=== PATIENT | male | born 1975 | race Caucasian/White ===

== ENCOUNTER 2019-04-02 13:43 | Inpatient (IN) ==
--- NOTE | 2019-04-02 14:54 | Diag Imaging Result Doc PS360 ---
EXAM: FLAT/UPRIGHT ABD/1 VIEW CHEST 04/02/2019 HISTORY: abd pain TECHNIQUE: Flat and upright abdomen with PA chest COMMENT: There is some platelike opacity in the left mid and lower lung field which may be due to atelectasis. The heart size and pulmonary vascularity are within normal limits. There is some stool in the colon. There is no evidence of gastric or small bowel dilatation. There is no evidence of organomegaly or mass. IMPRESSION: Minimal atelectasis primarily in the left base. No evidence of acute intra-abdominal disease. Electronically signed by Sandro Monk 04/02/2019 2:52 PM
[2019-04-02] MEDS ORDERED: MORPHINE IV ONE (15:43)
--- NOTE | 2019-04-02 15:46 | PROVIDER DOCUMENTATION ---
HPI-Abdominal Pain/GI Problem - General Chief Complaint: Generalized Pain Stated Complaint: NUMBNESS LT ARM,RIB PAIN,HURTS TO BREATHE Time Seen by Provider: 04/02/19 14:29 Source: patient Allergies/Adverse Reactions: Patient Allergies Allergy/AdvReac Type Severity Reaction Status Date / Time clindamycin Allergy NAUSEA Verified 11/25/17 07:51 Home Medications: Home Medication List Medication Instructions Recorded Confirmed Last Taken Type Metformin HCl 1,000 mg PO BID 11/22/17 11/22/17 11/21/17 History Metoprolol Tartrate 100 mg PO BID 11/22/17 11/22/17 11/21/17 History Glimepiride [Amaryl] 2 mg PO BID CC #60 tab 11/24/17 Unknown Rx LISINOpril [Prinivil] 10 mg PO DAILY #90 tab 11/24/17 Unknown Rx Rivaroxaban [Xarelto] 15 mg PO BID #40 tab 11/24/17 Unknown Rx Rivaroxaban [Xarelto] 20 mg PO DAILY #30 tab 11/24/17 Unknown Rx Tizanidine [Zanaflex] 4 mg PO Q8HR #21 tab 11/24/17 Unknown Rx - History of Present Illness-ABD Nature of Presenting Problems: 43 YO M pmh for DM and HTN presents with left sided abd pain x 1 week that has not gone away. He states his last BM was 2 days ago, he normally goes everyday. He endorses left sided abdominal pain and left flank pain and abdominal distensi on. He has associated fever, chills, and decreased appetite. Last colonoscoy 2 years ago showing diverticulosis. 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 Abdominal Pain Onset Location: reports: LUQ, LLQ, flank (left) Quality of Pain: reports: aching, fullness, pressure Onset/Duration: reports: 1 week ago Timing: reports: still present Activities at Onset: reports: none Exposure to sick contacts?: No Modifying Factors: improves with: movement, palpation Associated Symptoms: reports: fever/chills, malaise, nausea, weakness. denies: diarrhea, headaches, seizure, shortness of breath, syncope Last BM: 2 days ago Rectal Bleeding: reports: none Review of Systems - Adult - REVIEW OF SYSTEMS - ADULT Constitutional: reports: see HPI, chills, fever Eyes: reports: no symptoms reported Ears, Nose, Mouth & Throat: reports: no symptoms reported Respiratory: denies: chronic cough, cough, dyspnea on exertion Gastrointestinal: reports: see HPI, abdominal pain, constipation, poor appetite Genitourinary: reports: flank pain. denies: dysuria, frequency, hematuria Musculoskeletal: reports: back pain Integumentary: reports: no symptoms reported Neurological: reports: no symptoms reported Past History - Adult - PAST MEDICAL HISTORY-ADULT Review of Records: reports: Old Records Reviewed, Nursing Assessment Review, Medications Reviewed Major Childhood Illnesses: reports: denies history Cardiovascular: reports: HTN Respiratory: reports: denies history Gastrointestinal: reports: denies history Obstetrical/Gynecological: reports: denies history Genitourinary: reports: denies history Musculoskeletal: reports: denies history Neurological: reports: denies history Endocrine/Immune: reports: denies history Other Conditions: reports: denies history - PRIOR SURGERIES/PROCEDURES Surgical/Procedure History: reports: none - IMMUNIZATION STATUS Childhood Immunizations: See Nurse Assessment Flu Vaccine: See Nurse Assessment - FAMILY HISTORY Family History: reviewed, not pertinent Physical Exam-General - PHYSICAL EXAM-ADULT Initial Vital Signs Reviewed: Yes - CONSTITUTIONAL General Appearance: alert, mild distress - EYES Eyes: PERRL/EOMI, pink conjunctivae - HEAD, EARS, NOSE, MOUTH & THROAT HENMT: normocephalic/atraumatic - NECK Neck: full range of motion, supple - RESPIRATORY Respiratory: lungs clear, normal breath sounds, no pleuratic chest pain, no respiratory distress - CARDIOVASCULAR Cardiovascular: tachycardia - GASTROINTESTINAL (ABDOMEN) Abdominal Exam: distended, tenderness. negative: guarding - MUSCULOSKELETAL Back Exam: CVA tenderness Extremity: normal range of motion - SKIN Integumentary: normal color, normal turgor, warm/dry - NEUROLOGIC Neurologic: grossly normal - PSYCHIATRIC Psych/Mental Status: normal mood/affect, oriented x 3 Progress - PLAN OF CARE/RESULTS Progress/Plan/Lab Results: Vital Signs - 8 hr 04/02/19 13:59 Temperature 100.9 F H Pulse Rate 114 H Respiratory Rate 20 Blood Pressure 121/87 O2 Sat by Pulse Oximetry 96 Orders Category Date Time Status Repeat Vital Signs .Oxygen Saturation Care 04/02/19 14:[address] ABDOMEN/PELVIS W/O CONTRAST [CT] Stat Exams 04/02/19 15:38 Ordered FLAT/UPRIGHT ABD/1 VIEW CHEST [RAD] Stat Exams 04/02/19 14:25 Completed AMYLASE [CHEM] Stat Lab 04/02/19 14:25 Uncollected CBC WITH ELECTRONIC DIFF [HEME] Stat Lab 04/02/19 14:25 Uncollected COMPREHENSIVE METABOLIC PANEL [CHEM] Stat Lab 04/02/19 14:25 Uncollected LIPASE [CHEM] Stat Lab 04/02/19 14:25 Uncollected UA [URINALYSIS W/POSS RFLX CULT] [URINALYSIS] Stat Lab 04/02/19 15:38 Uncollected no white count, elevated creat and dimer. will to CTA PE. fluids, GI cocktail. neg CT abd/pelv Result Diagrams: 04/02/19 16:34 04/02/19 16:34 - REASSESSMENT Reassessment #1 Status: unchanged (pt states he is not doing well. will try for GI cocktail. wi ll get CTA PE and start fluids) - XRAY 1 XRAY Study: Chest, Abdomen Impression: See EMR Report (HISTORY: abd pain TECHNIQUE: Flat and upright abdomen with PA chest COMMENT: There is some platelike opacity in the left mid and lower lung field which may be due to atelectasis. The heart size and pulmonary vascularity are within normal limits. There is some stool in the colon. There is no evidence of gastric or small bowel dilatation. There is no evidence of organomegaly or mass. IMPRESSION: Minimal atelectasis primarily in the left base. No evidence of acute intra-abdominal disease. Electronically signed by Sandro Monk 04/02/2019 2:52 PM) - CT/MRI 1 CT Study: Abdomen Impression: See EMR Report (EXAM: CT ABDOMEN/PELVIS W/O CONTRAST 04/02/2019 HISTORY: left sided abd pain TECHNIQUE: This exam was performed using automat ed exposure control, adjustment of mA or kV according to patient size, and/or use of iterative reconstruction technique. COMMENT: There is bibasilar subsegmental atelectasis. This is actually improved since the previous thoracic study of 11/21/2017. There are no previous abdominal examinations available for comparison. The liver is hypodense suggesting fatty change. This was also the case at the time the previous study. There is no evidence of hydronephrosis. There are no stones in the kidneys. There is no evidence of ureterolithiasis. The urinary bladder is slightly distended. There are diverticula in the sigmoid colon without evidence of diverticulitis. There is no evidence of bowel obst ruction. The appendix is normal in appearance. There are no definite gallstones. There is a fat-containing umbilical hernia. The regional skeleton is intact. IMPRESSION: No evidence of stones or obstruction. Bibasilar subsegmental atelectasis. Hepatic steatosis. Diverticulosis coli. Electronically signed by Sandro Monk 04/02/2019 4:01 PM) 2 CT Study: Angiogram (HISTORY: tachycardia TECHNIQUE: CT angiogram pulmonary arteries with intravenous contrast. Axial, coronal, and 3-D MIP images are obtained. COMPARISON: 11/21/2017 FINDINGS: Pulmonary artery opacification is suboptimal. There are no large or central pulmonary emboli identified. However, smaller, more peripheral pulmonary emboli are not excluded by this exam. There is no indication of aortic dissection. There are apparent pulmonary coronary artery calcifications noted. There are scattered subsegmental atelectasis. There is a tiny there is no dense consolidation or pneumothorax identified. Right pleural effusion. IMPRESSION: Suboptimal pulmonary artery opacification. No large or central pulmonary emboli. However, smaller, more peripheral pulmonary emboli are not excluded by this exam. Scattered subsegmental atelectasis. Tiny right pleural effusion. Apparent coronary artery ca lcifications noted. Electronically signed by Kam Olson 04/02/2019 8:23 PM) - CONSULTS/PCP/HOSPITALIST Notification #1 *Consult/PCP/Hospitalist*: Dr. Lazcano Time Discussed: 21:30 Consult Disposition: Will see in ED (wanted UA results) Departure - Departure Date of Disposition Decision: 04/02/19 Time of Disposition Decision: 21:02 DIAGNOSIS: STEFANIA (acute kidney injury), Uncontrolled diabetes mellitus, Pleural effusion Disposition: ADMITTED INPATIENT Certified Medical Emergency: Emergent Condition: Stable Referrals and Follow-Ups: Michael Alvarenga MD [Primary Care Provider] - - Critical Care Note This patient required my direct & personal management of CC.: No Attestation - Physician/ BETZY Attestation The physician spent face to face time with patient:: Yes Advanced Practice Provider documentation review:: Supervising physician onsite and consulted in the evaluation and care of this patient. The physician did have a face to face encounter with the patient.
--- NOTE | 2019-04-02 15:49 | EKG Report ---
Test Performed on : 04/02/2019 2:02:50 PM Test Reason : ED. No order in [place] Blood Pressure : / mmHG Vent. Rate : 110 BPM Atrial Rate : 110 BPM P-R Int : 162 ms QRS Dur : 084 ms QT Int : 336 ms P-R-T Axes : 031 -11 093 degrees QTc Int : 454 ms Sinus tachycardia. Abnormal QRS-T angle, consider primary T wave abnormality Abnormal ECG When compared with ECG of 21-NOV-2017 22:35, Nonspecific T wave abnormality no longer evident in Inferior leads Unconfirmed Result
--- NOTE | 2019-04-02 16:04 | Diag Imaging Result Doc PS360 ---
EXAM: CT ABDOMEN/PELVIS W/O CONTRAST 04/02/2019 HISTORY: left sided abd pain TECHNIQUE: This exam was performed using automated exposure control, adjustment of mA or kV according to patient size, and/or use of iterative reconstruction technique. COMMENT: There is bibasilar subsegmental atelectasis. This is actually improved since the previous thoracic study of 11/21/2017. There are no previous abdominal examinations available for comparison. The liver is hypodense suggesting fatty change. This was also the case at the time the previous study. There is no evidence of hydronephrosis. There are no stones in the kidneys. There is no evidence of ureterolithiasis. The urinary bladder is slightly distended. There are diverticula in the sigmoid colon without evidence of diverticulitis. There is no evidence of bowel obstruction. The appendix is normal in appearance. There are no definite gallstones. There is a fat-containing umbilical hernia. The regional skeleton is intact. IMPRESSION: No evidence of stones or obstruction. Bibasilar subsegmental atelectasis. Hepatic steatosis. Diverticulosis coli. Electronically signed by Sandro Monk 04/02/2019 4:01 PM
[2019-04-02 16:46] LABS: BASO# 0.02 X1000 (0.0-0.2); BASO% 0.2 % (0.0-0.8); EOS# 0.01 X1000 (0.0-0.7); EOS% 0.1 % (0.0-10.0); HEMATOCRIT 35.5 % (42.0-52.0); HEMOGLOBIN 12.8 g/dL (14.0-18.0); IMM GRAN# 0.03 X1000 (0.0-0.04); IMM GRAN% 0.3 % (0.0-0.5); LYMPH# 1.36 X1000 (1.2-3.4); LYMPH% 14.1 % (20.5-51.1); MCH 32.7 PG (27-31); MCHC 36.1 g/dL (33-37); MCV 90.6 FL (81-99); MONO# 1.13 X1000 (0.11-0.59); MONO% 11.7 % (1.7-9.3); MPV 11.5 FL (7.4-10.4); NEUT# 7.12 X1000 (1.4-6.5); NEUT% 73.6 % (42.2-75.2); PLT 186 X1000 (130-400); RBC 3.92 XMIL (4.7-6.1); WBC 9.67 X1000 (4.8-10.8)
[2019-04-02 17:06] LABS: ALBUMIN 3.9 g/dL (3.5-5.0); CALCIUM 8.8 mg/dL (8.8-10.2); CREATININE 1.7 mg/dL (0.7-1.2); POTASSIUM 4.4 mmol/L (3.5-5.1); TOTAL BILIRUBIN 0.96 mg/dL (0.20-1.00); TOTAL PROTEIN 7.7 g/dL (6.3-8.3)
[2019-04-02] MEDS ORDERED: G.I. COCKTAIL PO ONE (17:16)
[2019-04-02] MEDS ORDERED: NS 1,000 ML IV ONE (17:18)
--- NOTE | 2019-04-02 20:25 | Diag Imaging Result Doc PS360 ---
EXAM: CT ANGIOGRAM PULMONARY ARTERIES - 04/02/2019 HISTORY: tachycardia TECHNIQUE: CT angiogram pulmonary arteries with intravenous contrast. Axial, coronal, and 3-D MIP images are obtained. COMPARISON: 11/21/2017 FINDINGS: Pulmonary artery opacification is suboptimal. There are no large or central pulmonary emboli identified. However, smaller, more peripheral pulmonary emboli are not excluded by this exam. There is no indication of aortic dissection. There are apparent pulmonary coronary artery calcifications noted. There are scattered subsegmental atelectasis. There is a tiny there is no dense consolidation or pneumothorax identified. Right pleural effusion. IMPRESSION: Suboptimal pulmonary artery opacification. No large or central pulmonary emboli. However, smaller, more peripheral pulmonary emboli are not excluded by this exam. Scattered subsegmental atelectasis. Tiny right pleural effusion. Apparent coronary artery calcifications noted. Electronically signed by Kam Olson 04/02/2019 8:23 PM
[2019-04-02] MEDS ORDERED: NS 500 ML IV ONE (21:27)
[2019-04-02 21:33] LABS: URINE SOURCE CLEAN CATCH
[2019-04-02 21:36] LABS: BILIRUBIN URINE NEGATIVE (NEGATIVE); BLOOD URINE NEGATIVE (NEGATIVE); COLOR YELLOW; GLUCOSE URINE NEGATIVE (NEGATIVE); KETONE URINE TRACE mg/dL (NEGATIVE); LEUKOCYTES URINE NEGATIVE (NEGATIVE); NITRITE URINE NEGATIVE (NEGATIVE); PH URINE 5.5; PROTEIN URINE TRACE mg/dL (NEGATIVE); SP GRAVITY URINE 1.039; TURBIDITY URINE CLEAR (CLEAR); UR EPITHELIAL CELLS <10 /HPF (<10); URINE BACTERIA NEGATIVE /HPF; URINE RBC <10 /HPF (<10); URINE WBC <10 /HPF (<10); UROBILINOGEN URINE NORMAL (NORMAL)
[2019-04-02] MEDS ORDERED: XARELTO PO ONE (23:50)
[2019-04-02] MEDS ORDERED: ZOFRAN IV PRN (23:50)
[2019-04-02] MEDS ORDERED: MORPHINE IV PRN (23:50)
--- NOTE | 2019-04-03 00:06 | HISTORY AND PHYSICAL ---
PRIMARY CARE PHYSICIAN: Michael Alvarenga MD REASON FOR ADMISSION: Six-day history of vague abdominal discomfort. HISTORY OF PRESENT ILLNESS: Mr. Hector Strauss is a 43-year-old middle-aged, male with past medical history of type 2 diabetes, hypertension, and hyperlipidemia. He was last seen by me 1-1/2 years ago for PE. He received, I believe, 1 year of treatment for this and doing well up until about 6 days ago, when he developed diffuse abdominal discomfort. He is having a hard time qualifying the nature of the pain, but says he felt as if he was bloated or full. Two days later, he took some laxative tablets without any relief, and 2 days later he took half a bottle of castor oil, and said he had a very good result and had multiple bowel movements. No black stools. No blood in stools. He denies any nausea or vomiting, but has been having occasional heartburn. On the day he had these numerous stools, he said he felt much better. The following day he said he started having the sensation of generalized bloating, and he felt the discomfort was returning. He came in today because he was febrile and his pain had gotten worse. He reports this fever as being a temperature of 101 degrees. He denies any night sweats. No genitourinary complaints. No bleeding from any orifice. No cardiorespiratory complaints. He says his pain now is localized to the left upper quadrant area, radiating to the flank and the back. No new-onset arthralgias, except for his right 3rd middle finger and his left foot. No polyuria or polydipsia. No focal neurological complaints. REVIEW OF SYSTEMS: Twelve-system review was done. Positive findings per HPI. ALLERGIES: To clindamycin. HOME MEDICATIONS: He is on amlodipine 10 mg daily; aspirin 81 mg daily; Amaryl 4 mg b.i.d.; hydrochlorothiazide 25 mg q.a.m.; Advil 400 mg daily; lisinopril 40 mg daily; metformin 1000 mg b.i.d.; metoprolol 400 mg b.i.d.; Prilosec 20 mg daily; pravastatin 40 mg q.a.m.; Januvia 100 mg q.a.m. SURGICAL HISTORY: He still has none. SOCIAL HISTORY: He does not smoke, drink, or use drugs. He is , lives with his . FAMILY HISTORY: Still notable only for heart disease and diabetes. No thrombophilia. LABORATORY DATA: White count 9000, hemoglobin and hematocrit 12 and 35, platelets 186,000 with normal differential. Sodium is 130, BUN is 27, creatinine is 1.7. His baseline creatinine is usually 1.2. Glucose is 216. D-dimer 2.27. DIAGNOSTIC DATA: CT abdomen and pelvis: No evidence of stone or obstruction; there is bibasilar segmental atelectasis, hepatic steatosis, and diverticulosis. Abdominal x-ray was grossly unremarkable. CT PE: No evidence of large or central pulmonary emboli identified due to inadequate opacification. It still does not rule out peripheral pulmonary emboli. Also, a right pleural effusion is noted. PHYSICAL EXAMINATION: GENERAL: Morbidly obese man who is in moderate distress. He is alert and oriented x3. Normal mood and affect. VITAL SIGNS: Blood pressure 128/87, heart rate 114, respirations 20, temperature is 100.9 degrees, saturation 96% on room air. HEENT: Head is normocephalic, atraumatic. Eyes: PERRLA, EOMI. He is anicteric and not pale. ENT and oropharynx exam is grossly normal. NECK: Supple. No JVD or carotid bruit. No thyromegaly. CHEST: Clear to auscultation. Good air entry in both lung contreras. CARDIOVASCULAR: First and second heart sounds heard. No gallops, murmurs or rubs. Rhythm is regular. GASTROINTESTINAL: Abdomen is protuberant, soft with left upper quadrant tenderness, but no rebound. Bowel sounds are hypoactive. Rectal exam deferred at this time. There is positive left CVA tenderness. EXTREMITIES: There is no redness or swelling in any of the extremities. No edema. No clubbing or peripheral cyanosis. Distal pulse volume symmetrical, regular with good volume. NEUROLOGICAL: No gross focal deficits. SKIN: Intact. No breakdown, lesion, or erythema. MUSCULOSKELETAL: Grossly normal. ASSESSMENT: 1. Left flank pain, ? renal vein thrombosis or referred pain from peripheral pulmonary emboli of the left lung. 2. Acute kidney injury. Kidney Disease: Improving Global Outcomes stage 2. 3. Hypertension. 4. Hyperlipidemia. 5. Probable gout of the left foot and 3rd digit of the right hand. 6. Morbid obesity. 7. Type 2 diabetes, uncontrolled. 8. Anemia of chronic inflammation. PLAN: 1. At this point in time, the origin of the patient's pain is difficult to elucidate. Based on the symptoms and intense nature of the pain, a vascular etiology may need to be considered or alternatively, an infarctive process also needs to be considered. As such, we will start the patient on Xarelto. A CTA of the abdomen may need to be done to rule out renal vein thrombosis, and because of the patient's prior history of thrombophilia and/or a possible splenic infarct. If these are normal, then it is still possible that the patient may have a very distal small arterial pulmonary emboli causing his pain. The decision to continue with anticoagulation I will defer to the primary care provider. 2. We will start the patient on aggressive fluid resuscitation. This is because of the patient's recent acute kidney injury and exposure to high iodine volume load for his CT PE scan. BMP needs to be monitored closely. I do believe STEFANIA could be multifactorial. The patient was on MARLON inhibitors, hydrochlorothiazide, and NSAIDs, all of which could contribute to STEFANIA. These will need to be held indefinitely until renal function improves. A renal sonogram is ordered. Urine indices are also ordered. The patient's complaint of his joint pains could be related to gout. Uric acid levels were ordered and hydrochlorothiazide needs to be discontinued. Blood sugars will be managed with sliding scale. cc: Ankit Lazcano MD
[2019-04-03] MEDS: NS 1,000 ML IV SCH ×5 (00:25→21:51)
[2019-04-03] MEDS: TYLENOL PO SCH ×5 (00:26→23:20)
[2019-04-03] MEDS: HUMALOG SUBQ SCH ×4 (06:13→21:17)
[2019-04-03] MEDS: PRILOSEC PO SCH (06:26)
[2019-04-03 07:28] LABS: UR CREAT RANDOM 122.1 mg/dL (14-26)
[2019-04-03 07:53] LABS: BASO# 0.02 X1000 (0.0-0.2); BASO% 0.2 % (0.0-0.8); EOS# 0.06 X1000 (0.0-0.7); EOS% 0.7 % (0.0-10.0); HEMATOCRIT 34.6 % (42.0-52.0); IMM GRAN# 0.03 X1000 (0.0-0.04); IMM GRAN% 0.4 % (0.0-0.5); LYMPH# 2.11 X1000 (1.2-3.4); LYMPH% 25.4 % (20.5-51.1); MCHC 34.7 g/dL (33-37); MCV 92.3 FL (81-99); MONO# 0.97 X1000 (0.11-0.59); MONO% 11.7 % (1.7-9.3); MPV 11.7 FL (7.4-10.4); NEUT# 5.11 X1000 (1.4-6.5); NEUT% 61.6 % (42.2-75.2); PLT 188 X1000 (130-400); RBC 3.75 XMIL (4.7-6.1); RDW 12.3 % (11.5-14.5)
--- NOTE | 2019-04-03 08:08 | Diag Imaging Result Doc PS360 ---
EXAM: US RENAL 2 (RETROPER) COMPLETE INDICATION: L flank pain STEFANIA TECHNIQUE: COMPARISON: None. FINDINGS: The kidneys are grossly normal in echotexture with no discrete solid mass or hydronephrosis. The right kidney measures 13.2 cm and the left kidney measures 14.2 cm in the greatest longitudinal axes. Both renal cortices measure up to 1.5 cm in thickness. The urinary bladder is normally distended. It is grossly unremarkable. IMPRESSION: Grossly normal renal ultrasound. Electronically signed by Junito Sinha 04/03/2019 8:05 AM
[2019-04-03 08:13] LABS: CALCIUM 8.8 mg/dL (8.8-10.2); CREATININE 1.5 mg/dL (0.7-1.2); POTASSIUM 4.3 mmol/L (3.5-5.1)
[2019-04-03] MEDS: NORVASC PO SCH (10:25)
[2019-04-03] MEDS: ASPIRIN PO SCH (10:25)
[2019-04-03] MEDS: LOPRESSOR PO SCH ×2 (10:26→21:16)
--- NOTE | 2019-04-03 11:11 | PROGRESS NOTE ---
DATE: 04/03/2019 VITAL SIGNS: Vital signs stable with temperature 97.6 degrees heart rate 80, respirations 19, blood pressure 109/62, O2 saturation on room air 98%. OBJECTIVE: The patient is a 43-year-old, white man, diabetic with left flank pain for several days and anorexia. There is history of pulmonary emboli a year or so ago. Pulmonary arteriogram was done in the emergency room revealing suboptimal study with peripheral emboli not excluded. CT of his abdomen revealed no stones or obstruction. There was mild bibasilar subsegmental atelectasis, hepatic steatosis, and diverticulosis. He was admitted through the emergency room by Dr. Lazcano. IMPRESSION: Left flank pain, possible renal vein thrombosis, acute kidney injury, gout in his left foot and right 3rd finger. BUN was 27 and creatinine 1.7, creatinine about a year ago was 1.2. Uric acid was elevated at 10.3. Liver functions were normal. Chest is clear to auscultation. Abdomen reveals mild left flank tenderness. PLAN: Renal ultrasound. He was given a dose of Xarelto in the emergency room. Lovenox will be given to prevent DVT. cc: Michael Alvarenga MD
[2019-04-03] MEDS: NORCO-7.5 PO PRN ×3 (11:18→21:17)
[2019-04-03] MEDS: CATAFLAM PO SCH ×2 (13:31→17:24)
[2019-04-03] MEDS ORDERED: SOLU-MEDROL IV ONE (16:58)
[2019-04-04] MEDS: NS 1,000 ML IV SCH ×2 (01:52→08:43)
[2019-04-04] MEDS: PRILOSEC PO SCH (06:28)
[2019-04-04] MEDS: TYLENOL PO SCH (06:28)
[2019-04-04] MEDS: HUMALOG SUBQ SCH (06:29)
[2019-04-04] MEDS: NORCO-7.5 PO PRN (06:32)
[2019-04-04 07:52] VITALS: BP 120/89
[2019-04-04 07:52] LABS: BASO# 0.01 X1000 (0.0-0.2); BASO% 0.1 % (0.0-0.8); HEMATOCRIT 34.7 % (42.0-52.0); HEMOGLOBIN 12.4 g/dL (14.0-18.0); IMM GRAN# 0.02 X1000 (0.0-0.04); IMM GRAN% 0.3 % (0.0-0.5); LYMPH# 0.81 X1000 (1.2-3.4); LYMPH% 11.5 % (20.5-51.1); MCHC 35.7 g/dL (33-37); MCV 89.7 FL (81-99); MONO% 2.8 % (1.7-9.3); MPV 11.6 FL (7.4-10.4); NEUT# 6.03 X1000 (1.4-6.5); NEUT% 85.3 % (42.2-75.2); PLT 199 X1000 (130-400); RBC 3.87 XMIL (4.7-6.1); RDW 11.8 % (11.5-14.5); WBC 7.07 X1000 (4.8-10.8)
[2019-04-04 08:00] LABS: CALCIUM 8.4 mg/dL (8.8-10.2); CREATININE 1.5 mg/dL (0.7-1.2); POTASSIUM 4.9 mmol/L (3.5-5.1)
[2019-04-04] MEDS ORDERED: LOVENOX SUBQ SCH (09:00)
[2019-04-04] MEDS: LOPRESSOR PO SCH (10:44)
[2019-04-04] MEDS: CATAFLAM PO SCH (10:44)
[2019-04-04] MEDS: NORVASC PO SCH (10:45)
[2019-04-04] MEDS: ASPIRIN PO SCH (10:45)
--- NOTE | 2019-04-04 14:17 | PROGRESS NOTE ---
DATE: 04/04/2019 SUBJECTIVE: The patient says he is feeling much better, having almost no discomfort in the left flank area. Apparently, he had some pain in his left foot and was given one dose of Solu-Medrol and his pain has gone away. Uric acid level had been 10.3 and he felt like this was probably a gout attack. He is having no problems with that now. The patient does have diabetes and hypertension. OBJECTIVE: Vital Signs: Temp 97.5 degrees Fahrenheit. Pulse 94 and regular, respirations 16, blood pressure 120/89. HEENT: Normocephalic. EOMs intact. PERRLA. Throat clear. Lungs: Clear to auscultation and percussion without rhonchi, rales, or wheezes. Heart: Regular rate and rhythm without murmurs, gallops, friction rubs. Abdomen: Soft. Active bowel sounds. No organomegaly or tenderness. Left foot exam is essentially normal at this point. Neurological: Intact. ASSESSMENT: Left flank pain. Unknown etiology. The patient had an impaction and possibly some of this pain occurred after the impaction was removed. If he continues to have more problems, it might be jordan to have GI look at him. The patient feels like he can go home. He is having no more foot pain even though he probably had acute gouty flare up. We will leave him off medications for the gout. We will send him home today on his regular home medications. He is to follow up with Dr. Dickey next week. cc: Davie Hawkins Jr, MD
--- NOTE | 2019-04-07 08:56 | DISCHARGE SUMMARY ---
ADMISSION DATE: 04/02/2019 DISCHARGE DATE: 04/04/2019 FINAL DIAGNOSES: 1. Left flank and upper abdominal discomfort of undetermined etiology. 2. Constipation. 3. Acute gouty attack of his left foot. 4. Acute renal injury, improved. 5. Type 2 diabetes. 6. Anemia of chronic inflammation. HISTORY: This is the first recent [facility] admission for this 43-year-old white man who presented to the emergency room with left flank and upper abdominal discomfort. CT was done of his chest which showed no evidence of central pulmonary emboli, but peripheral emboli could not be excluded. O2 saturation remained above 93%. He was admitted for evaluation of the pain and for hydration, having elevation of BUN and creatinine. INITIAL LABORATORY: Hemoglobin 12.8, hematocrit 35.5, white blood count 9600. Sodium 133, potassium 4.3, BUN 28, creatinine 1.5, glucose 177. HOSPITAL COURSE: Abdominal and pelvis CT revealed no evidence of stones or obstruction. There was basilar subsegmental atelectasis, hepatic steatosis and diverticulosis. Renal ultrasound was grossly normal. He improved over a couple of days. He was given diclofenac p.o. and 1 dose of Solu-Medrol for his gout. There was improvement. His left upper quadrant pain almost completely resolved. He was sent home by Dr. Hawkins over the weekend, on Saturday. He is to follow up by the end of the week in my office. Repeat BUN and creatinine will be done at that time. cc: Michael Alvarenga MD
== END 2019-04-04 13:46 | disposition home or self-care (01) | DRG 392 ==
LOC: ED 13:43 → 3N 23:42 → SUATTDRO 23:42
PROVIDERS: ATTEND Family Medicine